=== PATIENT | female | born 1930 | race Caucasian/White ===

== ENCOUNTER → 2020-04-13 | Outpatient (CLI) | payer MEDICARE ==
--- NOTE | 2020-04-13 14:16 | RAD ---
EXAM: CT HEAD WITHOUT CONTRAST. HISTORY: Dizziness and giddiness. TECHNIQUE: Computed tomography of the head was performed without intravenous contrast. One or more of the following individualized dose reduction techniques were utilized for this examination: 1. Automated exposure control. 2. Adjustment of the mA and/or kV according to patient size. 3. Use of iterative reconstruction technique. COMPARISON: None. FINDINGS: There are small bilateral low attenuation subdural collections measuring 4 mm bilaterally. There is no midline shift. The lateral ventricles appear mildly compressed for patient age. 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 No acute infarct is identi fied. The visualized paranasal sinuses appear clear. There are changes of bilateral cataract surgery. The t emporal bones are unremarkable. The calvarium reveals no suspicious lesions. There are atheroscleroti c calcifications of the internal carotid and vertebral arteries. IMPRESSION: 1. 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 The lateral v entricles appear mildly compressed without midline shift. Comparison with older studies could assess stability. Ongoing follow-up is recommended. 2. Mild chronic microangiopathic white matter change for patient age. These findings were called to Dr. Arvizu by Tayo Brooks on 04/13/2020 at 1:48 PM. Electronically signed by: Asim Brooks MD (04/13/2020 2:14 PM) [facility]
--- NOTE | 2020-04-13 14:30 | RAD ---
EXAM: Bilateral lower extremity arterial Doppler. HISTORY: Left lower extremity rest pain, smoking history, hypertension. COMPARISON: None. FINDINGS: Grayscale and Doppler analysis of the lower extremity arterial systems was performed bilaurea mendieta. On the right, there is a triphasic waveform within the common femoral artery. Waveforms become biphas ic within the superficial femoral artery and remain biphasic throughout the remainder of the right lo wer extremity. The dorsalis pedis artery is patent. On the left, there is a triphasic waveform within the common femoral artery. Waveforms become biphasi c within the superficial femoral artery. Waveforms become monophasic within the dorsalis pedis artery . IMPRESSION: 1. 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 2. Significantly flow-limiting stenosis within the distal left anterior tibial/dorsalis pedis artery. Electronically signed by: Asim Brooks MD (04/13/2020 2:28 PM) [facility]
== END ==
LOC: CT 12:45
PROVIDERS: ATTEND Specialist
DX: S06.5X9A Traumatic subdural hemorrhage with loss of consciousness of unspecified duration, initial encounter (principal); R42 Dizziness and giddiness; R09.89 Other specified symptoms and signs involving the circulatory and respiratory systems; X58.XXXA Exposure to other specified factors, initial encounter; Y93.89 Activity, other specified; Y92.89 Other specified places as the place of occurrence of the external cause; Y99.8 Other external cause status
CPT/HCPCS: 70450; 93925

== ENCOUNTER → 2020-05-06 | Outpatient (CLI) | payer MEDICARE ==
--- NOTE | 2020-05-06 15:31 | RAD ---
EXAM: Left knee, 3 views HISTORY: Pain. COMPARISON: None. FINDINGS: 3 views of the left knee are obtained. There is medial compartment joint space narrowing an d spurring. There is medial compartment chondrocalcinosis. There is a small joint effusion. IMPRESSION: 1. 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 2. No acute osseous finding. Electronically signed by: Alejandra Kasper MD (05/06/2020 3:29 PM) [id number]
== END ==
LOC: DXRAD 15:09
PROVIDERS: ATTEND Specialist
DX: M17.12 Unilateral primary osteoarthritis, left knee (principal); M11.262 Other chondrocalcinosis, left knee; M25.462 Effusion, left knee
CPT/HCPCS: 73562

== ENCOUNTER → 2020-05-19 | Outpatient (CLI) | payer MEDICARE ==
--- NOTE | 2020-05-19 15:34 | RAD ---
CT Head without contrast 05/19/2020 11:17 AM Indication: Reason: FOLLOW UP SUBDURAL HEMORRHAGE / Spl. Instructions: ` / History: Comparison: CT head without contrast April 13, 2020 Findings: No interval intracranial hemorrhage is seen. Small chronic subdural hematomas involving the bilateral convexities are grossly unchanged.There is prominent patchy periventricular and deep white matter hypoattenuation which is nonspecific, but most commonly relates to chronic small vessel disea se. The appearance is similar to comparison study. No abnormal extra axial fluid collection is identi fied. No mass effect or midline shift is seen. No acute osseous abnormalities are seen. Impression: 1. No acute intracranial process identified 2. Age-related atrophy, and evidence of chronic small vessel disease as described 3. Grossly similar appearance of chronic appearing bilateral subdural hematoma CT DOSING PQRS STATEMENT: One or more of the following individualized dose reduction techniques were utilized for this examinat ion: 1. Automated exposure control 2. Adjustment of the mA and/or kV according to patient size 3. Use of iterative reconstruction technique Electronically signed by: Anurag Kingsley MD (05/19/2020 3:31 PM) [id number]
== END ==
LOC: CT 11:06
PROVIDERS: ATTEND Neurological Surgery
DX: I62.03 Nontraumatic chronic subdural hemorrhage (principal); G31.1 Senile degeneration of brain, not elsewhere classified
CPT/HCPCS: 70450

== ENCOUNTER → 2020-07-27 | Outpatient (CLI) | payer MEDICARE ==
--- NOTE | 2020-07-27 18:09 | RAD ---
EXAM: CT Head without IV contrast INDICATION: Reason: NONTRAUMATIC CHRONIC SUBDURAL HEMATOMA / Spl. Instructions: / History: TECHNIQUE: Multi-detector row CT images were obtained of the head without the use of IV contrast. All CT scans performed at this facility utilize dose optimization techniques as appropriate to the exam, including the following: Automated exposure control and adjustment of the mA and/or KV according to patient size (this includes techniques or standardized protocols for targeted exams where dose is ind ication/reason for exam). COMPARISON: Noncontrast head CT of 05/19/2020 FINDINGS: BRAIN PARENCHYMA: No evidence of acute intraparenchymal hemorrhage or infarct. Do not parenchymal vol ume loss and white matter low density compatible chronic ischemic microvascular change is redemonstra bindu. Tiny lacunar infarcts in the bilateral caudate heads are redemonstrated. VENTRICLES & EXTRA-AXIAL SPACES: Ventricles are within normal limits. Basilar cisterns are patent. T he extra-axial spaces show similar isodense to hypodense fluid collections over the bilateral cerebra l hemispheres measuring approximately 5 mm bilaterally, compatible with a known history of chronic verdin bdural hematomas. ORBITS: Orbital contents are unremarkable. SINUSES: Visualized paranasal sinuses and mastoid air cells are clear. OSSEOUS & SOFT TISSUES: Calvarium and skull base are intact. IMPRESSION: Stable bilateral chronic subdural hematomas with no mass effect, acute infarct or new hemorrhage. Electronically signed by: Nata Kwan MD (07/27/2020 6:07 PM) [id number]
== END ==
LOC: CT 11:03
PROVIDERS: ATTEND Neurological Surgery
DX: S06.5X9A Traumatic subdural hemorrhage with loss of consciousness of unspecified duration, initial encounter (principal); X58.XXXA Exposure to other specified factors, initial encounter; Y93.89 Activity, other specified; Y92.89 Other specified places as the place of occurrence of the external cause; Y99.8 Other external cause status
CPT/HCPCS: 70450

== ENCOUNTER 2020-08-24 14:28 | Emergency (ER) | payer MEDICARE ==
[~2020-08-24] VITALS: Ht 170.2 cm; Wt 76.0 kg
--- NOTE | 2020-08-24 14:54 | PHYS DOC ---
Past History Past Medical History: A-Fib, Hypertension Past Surgical History: Appendectomy, Cholecystectomy, Hysterectomy Smoking: Cigarettes, Less than 1pk/day Alcohol Use: None Drug Use: None General Adult EDM: Chief Complaint: LOWER EXTREMITY EDEMA HPI: HPI: 89-year-old female with a past medical history of A. fib, hypertension presents to the ED with a chief complaint of lower extremity edema. Onset was 1 week ago. Patient states for the past year she has had chronic left lower extremity edema that has been stable over the past week she has noticed bilateral lower extremity edema. Associated symptoms are dyspnea on exertion. She denies chest pain, orthopnea, abdominal pain, nausea, vomiting, diarrhea, cough, history of blood clots, calf pain. Patient states her legs feel heavy but she does not have any tenderness of the lower extremities. 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 Patient is a current everyday smoker. Review of Systems: Review of Systems: Constitutional: Denies fever or chills Eyes: Denies redness or eye pain HENT: Denies nasal congestion or sore throat Respiratory: Denies cough. Reports shortness of breath on exertion. Cardiovascular: Denies chest pain or palpitations GI: Denies abdominal pain, nausea, or vomiting : Denies dysuria or hematuria Musculoskeletal: Denies back pain or joint pain. Reports lower extremity swel ling. Denies calf pain. Integument: Denies rash or skin lesions Neurologic: Denies headache, focal weakness or sensory changes Complete systems were reviewed and found to be within normal limits, except as documented in this note. Physical Exam: PE: Constitutional: Well developed, well nourished, no acute distress, non-toxic appearance HENT: Normocephalic, atraumatic Eyes: PERRL, EOMI, conjunctiva normal, no discharge Neck: Normal range of motion, no tenderness, supple Lungs & Thorax: No respiratory distress, equal chest rise and fall. End expiratory wheezes bilaterally in the upper lung cohen. Heart was regular rate and rhythm no murmur. Abdomen: Soft, mild diffuse upper abdominal tenderness, no peritoneal signs, no guarding, no rebound. Skin: Warm, dry, no erythema, no rash Back: No tenderness, no CVA tenderness Extremities: No tenderness, ROM intact. Bilateral lower extremity edema left worse than right, 3+ pitting on the left, 2+ pitting on the right. Intact 2+ DP pulses bilaterally. No erythema of the calf or calf tenderness. Neurologic: Alert and oriented X 3, normal motor function, normal sensory function, no focal deficits noted Psychologic: Affect normal, judgment normal EKG: EKG: @ 1505 NSR at 64bpm, NO ST elevation, QRS 98ms, QT/QTc 434/452ms, baseline artifact noted Radiology/Procedures: Radiology/Procedures: PROCEDURE: PORTABLE CHEST 1V Exam: Chest one view INDICATION: Dyspnea on exertion TECHNIQUE: Frontal view of the chest Comparisons: None FINDINGS: Pacer with leads terminating at the right atrium and ventricle. Heart is mildly enlarged. Pulmonary vessels are within normal limits. The lung and pleural spaces are clear. IMPRESSION: No acute pulmonary process. Electronically signed by: Joan Liirano MD (08/24/2020 3:58 PM) [facility] PROCEDURE: VENOUS LOWER EXT BILATERAL EXAM: Bilateral lower extremity venous Doppler sonogram. HISTORY: Pain and swelling. TECHNIQUE: Abel scale and color Doppler sonographic evaluation of the bilateral lower extremity veins with spectral waveform analysis was performed. FINDINGS: There is normal color flow, normal compressibility and there are normal spectral waveforms in the common femoral, superficial femoral, popliteal, posterior tibial and greater saphenous veins. IMPRESSION: No Doppler evidence of lower extremity deep venous thrombosis. Electronically signed by: Alejandra Kasper MD (08/24/2020 4:36 PM) [id number] Heart Score: C/O Chest Pain: N/A Course & Med Decision Making: Course & Med Decision Making Pertinent Labs and Imaging studies reviewed. (See chart for details) This is an 89-year-old female with history A. fib hypertension presents with bilateral lower extremity edema for the past 1 week. She also has associated dyspnea on exertion. Patient states she has some chronic left lower extremity swelling that has been stable without the use of diuretic over the past week she has noticed bilateral lower extremity edema. Sickle exam positive for some end expiratory wheezes as well as bilateral lower extremity pitting edema. Will get chest x-ray, labs, venous Doppler. Dragon Disclaimer: Dragon Disclaimer: This electronic medical record was generated, in whole or in part, using a voice recognition dictation system. Departure Departure: Impression: Primary Impression: Peripheral edema Disposition: 01 HOME / SELF CARE / HOMELESS Condition: STABLE Referrals: CHOLO LIU MD (PCP) Patient Instructions: Peripheral Edema Additional Instructions: Please call tomorrow to make an appointment for Monday to be re-evaluated by Dr. Liu in the office. Scripts Potassium Chloride (KLOR-CON M20) 20 Meq Tab.er.prt 1 TAB PO DAILY for Potassium replacement for 14 Days, #14 TAB 0 Refills Prov: CHERELLE VIRAMONTES DO 08/24/20 Furosemide (LASIX) 20 Mg Tablet 1 TAB PO DAILY for Peripheral edema for 14 Days, #14 TAB 0 Refills Prov: CHERELLE VIRAMONTES DO 08/24/20 CHERELLE VIRAMONTES DO Aug 24, 2020 14:54
[2020-08-24] MEDS ORDERED: ASPIRIN 325 MG TABLET PO ONE (15:00)
--- NOTE | 2020-08-24 15:12 | EKG ---
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
[2020-08-24 15:46] LABS: BASO # 0.1 x10^3/uL (0.0-0.2); BASO % 1 % (0-3); EOS # 0.5 x10^3/uL (0.0-0.7); EOS % 4 % (0-3); HEMATOCRIT 36.9 % (36.0-47.0); LYMPH # 1.6 x10^3/uL (1.0-4.8); LYMPH % 14 % (24-48); MEAN CORPUSCULAR HEMOGLOBIN 30 pg (25-35); MEAN CORPUSCULAR HGB CONC 33 g/dL (31-37); MEAN CORPUSCULAR VOLUME 92 fL (79-100); MONO # 0.8 x10^3/uL (0.0-1.1); MONO % 7 % (0-9); NEUT # 8.5 x10^3uL (1.8-7.7); NEUT % 74 % (31-73); PLATELET COUNT 244 x10^3/uL (140-400); RED BLOOD COUNT 4.01 x10^6/uL (3.50-5.40); RED CELL DISTRIBUTION WIDTH 14.3 % (11.5-14.5); WHITE BLOOD COUNT 11.5 x10^3/uL (4.0-11.0)
[2020-08-24 15:49] LABS: CALCIUM 9.1 mg/dL (8.5-10.1); CREATININE 0.9 mg/dL (0.6-1.0); GFR 59.2; POTASSIUM 3.8 mmol/L (3.5-5.1)
[2020-08-24 16:01] LABS: BILIRUBIN,URINE NEG (NEG); CLARITY,URINE CLEAR; COLOR,URINE YELLOW; GLUCOSE,URINE NEG (NEG)
--- NOTE | 2020-08-24 16:01 | RAD ---
Exam: Chest one view INDICATION: Dyspnea on exertion TECHNIQUE: Frontal view of the chest Comparisons: None FINDINGS: Pacer with leads terminating at the right atrium and ventricle. Heart is mildly enlarged. Pulmonary vessels are within normal limits. The lung and pleural spaces are clear. IMPRESSION: No acute pulmonary process. Electronically signed by: Joan Liriano MD (08/24/2020 3:58 PM) [facility]
[2020-08-24 16:02] LABS: NITRITE,URINE NEG (NEG); UROBILINOGEN,URINE 0.2 mg/dL (0.2 mg/dL)
[2020-08-24 16:05] LABS: ALBUMIN 3.5 g/dL (3.4-5.0); MAGNESIUM 1.7 mg/dL (1.8-2.4); TOTAL BILIRUBIN 0.4 mg/dL (0.2-1.0)
[2020-08-24 16:06] LABS: BACTERIA,URINE 0 /HPF (0-FEW); RBC,URINE OCC /HPF (0-2); SQUAMOUS EPITHELIAL CELL,UR FEW /LPF
--- NOTE | 2020-08-24 16:38 | RAD ---
EXAM: Bilateral lower extremity venous Doppler sonogram. HISTORY: Pain and swelling. TECHNIQUE: Abel scale and color Doppler sonographic evaluation of the bilateral lower extremity veins with spectral waveform analysis was performed. FINDINGS: There is normal color flow, normal compressibility and there are normal spectral waveforms in the common femoral, superficial femoral, popliteal, posterior tibial and greater saphenous veins. IMPRESSION: No Doppler evidence of lower extremity deep venous thrombosis. Electronically signed by: Alejandra Kasper MD (08/24/2020 4:36 PM) [id number]
[2020-08-24] MEDS ORDERED: FUROSEMIDE 40 MG TABLET PO ONE (17:45)
[2020-08-24] MEDS ORDERED: FURO-69 PO (17:45)
[2020-08-24] MEDS ORDERED: POTA20TA4 PO (17:45)
[2020-08-24 18:00] VITALS: BP 159/76
== END 2020-08-24 18:02 | disposition home or self-care (01) ==
LOC: ER 14:28
DX: R60.0 Localized edema (principal); I10 Essential (primary) hypertension; I48.91 Unspecified atrial fibrillation; F17.210 Nicotine dependence, cigarettes, uncomplicated; Z90.89 Acquired absence of other organs; Z90.49 Acquired absence of other specified parts of digestive tract; Z90.710 Acquired absence of both cervix and uterus
CPT/HCPCS: 36415; 71045; 80053; 81001; 82553; 83690; 83735; 83880; 84484; 85025; 93005; 93970; 99285-25